=== PATIENT | female | born 1990 | race Caucasian/White ===

== ENCOUNTER 2017-04-09 00:15 | Observation (INO) | payer OTHER ==
[2017-04-09 00:39] LABS: #Basophils 0.1 thou/uL (0.0-0.2); #Eosinphils 0.2 thou/uL (0.0-0.7); #Lymphocytes 2.9 thou/uL (1.20-3.40); #Monocytes 0.6 thou/uL (0.11-0.59); #Neutrophils 5.4 thou/uL (1.40-6.50); %Basophils 0.7 % (0.0-1.0); %Eosinophils 2.1 % (0.0-10.0); %Lymphocytes 31.5 % (21.0-51.0); %Neutrophils 58.6 % (42.0-75.0); Hemoglobin 12.8 g/dL (12.0-16.0); Mean Corpuscular HGB CONC 33.1 g/dL (32.0-36.0); Mean Corpuscular Hemoglobin 30.3 pg (27.0-31.0); Mean Corpuscular Volume 91.6 fl (81.0-99.0); Mean Platelet Volume 8.3 fL (7.4-10.4); Platelet Count 278 thou/uL (130-400); RBC Distribution Width 11.6 % (11.5-14.5); Red Blood Cell (RBC) Count 4.22 mill/uL (4.20-5.40); White Blood Cell (WBC) Count 9.1 thou/uL (4.8-10.8)
[2017-04-09 01:09] LABS: ALT (SGPT) 15 U/L (8-55); AST (SGOT) 15 U/L (5-34); Alkaline Phosphatase 52 U/L (40-150); Anion Gap 9 mmol/L (10-20); BUN (Urea Nitrogen) 19 mg/dL (7.0-18.7); Bilirubin, Total 0.2 mg/dL (0.2-1.2); Calc. Creatinine Clearance 0 mL/min (70-130); Calcium 9.3 mg/dL (7.8-10.44); Carbon Dioxide 28 mmol/L (22-29); Chloride 107 mmol/L (98-107); Estimated GFR-MDRD 69; Globulin 2.8 g/dL (2.4-3.5); Glucose 100 mg/dL (70-105); Lipase 21 U/L (8-78); Potassium 3.6 mmol/L (3.5-5.1); Protein, Total 6.8 g/dL (6.0-8.3); Sodium 140 mmol/L (136-145)
[2017-04-09 01:28] LABS: BHCG - Serum Negative (NEGATIVE); Pregs Control Background? CLEAR/WHITE (CLR/WHITE); Pregs Control Bar Appear? YES (CONTROL BAR)
[2017-04-09] MEDS ORDERED: Acetaminophen 500 MG TAB ONE (01:45)
[2017-04-09] MEDS ORDERED: Dexamethasone 10 MG/ML VIAL ONE (01:45)
[2017-04-09] MEDS ORDERED: Metoclopramide HCl 10 MG/2 ML VIAL ONE (01:45)
[2017-04-09] MEDS ORDERED: Magnesium Sulfate 2 GM/100 ML BAG ONE (01:48)
[2017-04-09 03:14] LABS: Bilirubin Negative (Negative); Blood, Urine Large (Negative); Clarity CLEAR (Clear); Glucose, Urine (Dipstick) Negative (Negative); Leukocyte Negative (Negative); Nitrite Negative (Negative); Protein, Urine (Dipstick) Negative (Neg-Trace); Specific Gravity, Urine 1.022 (1.002-1.036); pH, Urine 6.5 (5.0-9.0)
[2017-04-09 03:16] LABS: Bacteria/HPF None Seen HPF (None Seen); Hyaline Casts/LPF 0-3 HYALINE CAST LPF (0-3 Hyaline); RBC/HPF 0-3 HPF (0-3); Squamous Epithelial 0-3 HPF (0-3); WBC/HPF 0-3 HPF (0-3)
[2017-04-09] MEDS ORDERED: Lidocaine 1% (PF) 30 ML VIAL ONE (04:17)
[2017-04-09] MEDS ORDERED: Ondansetron HCl/PF 4 MG/2 ML Vial ONE (04:17)
[2017-04-09] MEDS ORDERED: Lorazepam 2 MG/ML VIAL ONE (04:17)
--- NOTE | 2017-04-09 07:42 | CT ---
PRELIMINARY REPORT/[facility]/EMERGENCY AFTER HOURS PROCEDURE: EXAM: CT Head Without Intravenous Contrast EXAM DATE/TIME: 04/09/2017 3:09 AM CLINICAL HISTORY: 26 years old, female; Pain; Headache; Patient HX: Er 12; 26 yo f, pt states she has had headache for past x2 weeks which she describes as heaviness and pressure. States that recently she started seeing spots. Not on blood thinners. Denies loc. Denies h/o headaches. TECHNIQUE: Axial computed tomography images of the head/brain without intravenous contrast. COMPARISON: No relevant prior studies available. FINDINGS: Brain: Unremarkable. No hemorrhage. No significant white matter disease. No edema. Ventricles: Unremarkable. No ventriculomegaly. Bones/joints: Unremarkable. No acute fracture. Soft tissues: Unremarkable. Sinuses: Unremarkable as visualized. No acute sinusitis. Mastoid air cells: Unremarkable as visualized. No mastoid effusion. IMPRESSION: No acute intracranial abnormality. Thank you for allowing us to participate in the care of your patient. Dictated and Authenticated by: Wilver Ansari MD 04/09/2017 3:38 AM Central Time ([place] & [place]) FINAL REPORT EMERGENCY AFTER HOURS CT BRAIN WITHOUT CONTRAST: Date: 04/09/17 FINDINGS/IMPRESSION: I agree with the findings and impression given in the preliminary report per [facility] physician. No evide nce of acute intracranial abnormality. POS: OFF
[2017-04-09] MEDS ORDERED: Senokot 8.6 MG TAB PO PRN (08:07)
[2017-04-09] MEDS ORDERED: Mag-Al 1200 mg/1200 mg/30 ML UDCUP PO PRN (08:07)
[2017-04-09] MEDS ORDERED: Acetaminophen 325 MG TAB PO PRN (08:07)
[2017-04-09] MEDS ORDERED: Docusate 100 MG CAP PO PRN (08:07)
--- NOTE | 2017-04-09 08:09 | CT ---
PRELIMINARY REPORT/[facility]/EMERGENCY AFTER HOURS PROCEDURE: EXAM: CT Abdomen and Pelvis With Intravenous Contrast EXAM DATE/TIME: 04/09/2017 3:13 AM CLINICAL HISTORY: 26 years old, female; Pain; Abdominal pain; Localized; Lower; Patient HX: Er12; 26 yo f presents to e d for multiple complaints. Pt states she has had headache for past x2 weeks which she describes as he aviness and pressure. Pt also reports x1 week of abdominal pain which starts in center of abdomen and radiates around to back. States that she noticed blood in urine and also reports suprapubic abdomina l pain. No vaginal discharge. Lmp 03/19/17. Surgical history of section TECHNIQUE: Axial computed tomography images of the abdomen and pelvis with intravenous contrast. Coronal reformatted images were created and reviewed. COMPARISON: No relevant prior studies available. FINDINGS: Lower thorax: Mild bibasilar dependent changes. ABDOMEN: Liver: Mild intrahepatic biliary dilatation. Gallbladder and bile ducts: See above. No pericholecystic inflammatory change. Pancreas: Unremarkable. No mass. No ductal dilation. Spleen: Unremarkable. No splenomegaly. Adrenals: Unremarkable. No mass. Kidneys and ureters: Unremarkable. No solid mass. No hydronephrosis. Stomach and bowel: Unremarkable. No obstruction. No mucosal thickening. Appendix: No findings to suggest acute appendicitis. PELVIS: Bladder: Urinary bladder is under distended. ABDOMEN and PELVIS: Intraperitoneal space: Unremarkable. No free air. No significant fluid collection. Bones/joints: No acute fracture. No dislocation. Soft tissues: Small fat-containing umbilical hernia. Vasculature: Unremarkable. No abdominal aortic aneurysm. Lymph nodes: Unremarkable. No enlarged lymph nodes. IMPRESSION: No acute inflammatory process involving the abdomen or pelvis. Mild intrahepatic biliary dilatation. Thank you for allowing us to participate in the care of your patient. Dictated and Authenticated by: Wilver Ansari MD 04/09/2017 3:43 AM Central Time ([place] & [place]) FINAL REPORT CT ABDOMEN AND PELVIS WITH IV CONTRAST: I agree with the preliminary report given by Dr. Wilver Ansari of [employer]. POS: [facility]
[2017-04-09] MEDS ORDERED: Metoclopramide 10 MG/10 ML UDCUP PO PRN (08:10)
[2017-04-09] MEDS ORDERED: Ketorolac Tromethamine 30 MG/ML VIAL IVP PRN (08:10)
[2017-04-09] MEDS ORDERED: Cyclobenzaprine 10 MG TAB PO PRN (08:10)
[2017-04-09] MEDS ORDERED: Metoclopramide HCl 10 MG/2 ML VIAL IVP PRN (08:10)
[2017-04-09] MEDS ORDERED: Lorazepam 0.5 MG TAB PO PRN (08:16)
[2017-04-09] MEDS ORDERED: clonazePAM 0.5 MG TAB PO PRN (08:18)
--- NOTE | 2017-04-09 08:19 | PDOC.FPRHP ---
- History of Present Illness Chief Complaint: Headache History of Present Illness: 26 yo f with a pmhx of anxiety and depression presents with a 2 week hx of a chronic persistent bilateral headache. She said it starts bitemporal and radiates down to her occipital region. She describes it as squeezing her entire head, and annoying. Naproxen, toradol, and sumatriptan were tried in the outpatient setting without relief. She also endorses intermittent right sided abdominal cramping for 1 week that radiates to right back. + hematuria. Denies dysuria. Endorses an aura with her headache, but denies n/v/d, or photophobia, or neck pain. - Allergies/Adverse Reactions Allergies Allergy/AdvReac Type Severity Reaction Status Date / Time No Known Allergies Allergy Unverified 02/04/13 11:56 - Home Medications Medication Instructions Recorded Confirmed Type Naproxen 500 mg PO Q6HR PRN 04/09/17 04/09/17 History Sertraline HCl 100 mg PO DAILY 04/09/17 04/09/17 History - History PMHx: Depression/Anxiety PSHx: none FHx: No FM of migraines/Headaches Social: Works at [employer]. - Review of Systems General: reports: night sweats. denies: fever/chills, weight/appetite/sleep changes Eyes: denies: eye pain, vision changes ENT: denies: nasal congestion, rhinorrhea Respiratory: denies: cough, congestion, shortness of breath Cardiovascular: denies: chest pain, palpitation Gastrointestinal: denies: nausea, vomiting, diarrhea Genitourinary: denies: incontinence, dysuria, polyuria Skin: denies: rashes, lesions Musculoskeletal: reports: pain (neck), stiffness Neurological: reports: other (headache). denies: numbness, syncope, seizure Psychological: reports: anxiety, depression - Vital signs BP: [111/71] HR: [74] RR: [16] Tmax: [98.3] Pox: [98]% on [RA] - Physical Exam Constitutional: NAD, awake, alert and oriented HEENT: normocephalic and atraumatic, PERRLA, EOMI, conjunctiva clear, no scleral icterus, grossly normal vision, grossly normal hearing, MMM, oropharynx clear, good dention Neck: supple, no LAD, no JVD, no thyromegaly Chest: no-tender to palpation Heart: RRR, normal S1/S2, no murmurs/rubs/gallops, pulses present, no edema Lungs: CTAB, no respiratory distress, no wheezing Abdomen: soft, non-tender, bowel sounds present, no masses/distention, no hernias -Abdomen: no CVA tenderness Musculoskeletal: normal structure, normal tone, ROM grossly normal -Musculoskeletal: TTP suboccipital region. Neurological: no focal deficit, CN II-XII intact, normal sensation, other ( normal DTR's) Skin: no rash/lesions, capillary refill <2 seconds, no jaundice Heme/Lymphatic: no unusual bruising or bleeding, no purpura Psychiatric: normal mood and affect, good judgment and insight, intact recent and remote memory FMR H&P: Results - Labs Result Diagrams: 04/09/17 00:27 04/09/17 00:27 Lab results: WBC 9.1 thou/uL (4.8-10.8) 04/09/17 00: Hgb 12.8 g/dL (12.0-16.0) 04/09/17: Hct 38.7 % (36.0-47.0) 04/09/17: MCV 91.6 fl (81.0-99.0) 04/09/17 00: Plt Count 278 thou/uL (130-400) 04/09/17 00: Neutrophils % 58.6 % (42.0-75.0) 04/09/17 00: Sodium 140 mmol/L (136-145) 04/09/17: Potassium 3.6 mmol/L (3.5-5.1) 04/09/17: Chloride 107 mmol/L (98-107) 04/09/17: Carbon Dioxide 28 mmol/L (22-29) 04/09/17: BUN 19 mg/dL (7.0-18.7) H 04/09/17 00: Creatinine 0.99 mg/dL (0.6-1.1) 04/09/17 00: Glucose 100 mg/dL (70-105) 04/09/17: Calcium 9.3 mg/dL (7.8-10.44) 04/09/17 00:27 Total Bilirubin 0.2 mg/dL (0.2-1.2) 04/09/17 00:27 AST 15 U/L (5-34) 04/09/17 00:27 ALT 15 U/L (8-55) 04/09/17 00:27 Alkaline Phosphatase 52 U/L (40-150) 04/09/17 00:27 Serum Total Protein 6.8 g/dL (6.0-8.3) 04/09/17 00:27 Albumin 4.0 g/dL (3.5-5.0) 04/09/17 00:27 Lipase 21 U/L (8-78) 04/09/17 00:27 Urine Ketones Negative mg/dL (Negative) 04/09/17 02:55 Urine Blood Large (Negative) H 04/09/17 02:55 Urine Nitrite Negative (Negative) 04/09/17 02:55 Ur Leukocyte Esterase Negative (Negative) 04/09/17 02:55 Urine RBC 0-3 HPF (0-3) 04/09/17 02:55 Urine WBC 0-3 HPF (0-3) 04/09/17 02:55 Ur Squamous Epith Cells 0-3 HPF (0-3) 04/09/17 02:55 Urine Bacteria None Seen HPF (None Seen) 04/09/17 02:55 - Radiology Interpretation CT scan - abdomen Status: image reviewed by me, report reviewed by me CT scan - head Status: image reviewed by me, report reviewed by me FMR H&P: A/P - Problem List (1) Migraine with aura Current Visit: Yes Status: Acute Code(s): G43.109 - MIGRAINE WITH AURA, NOT INTRACTABLE, W/O STATUS MIGRAINOSUS Qualifiers: Intractability: intractable Assessment and Plan: This is a 26yo WF w/ no PMH of migraines, presents to ED w/ 2 weeks history of Headache that failed outpatient treatment. Migraine verses musculoskeletal origin. We will admit and try migraine cocktails. And stretching of the head and neck. Head CT was negative. An LP was performed but unsuccessful, however no meningeal signs. If her SLADE does not improve with Migraine cocktail, will consider neurology consult. (2) Hematuria Current Visit: Yes Status: Acute Code(s): R31.9 - HEMATURIA, UNSPECIFIED Assessment and Plan: Will treat for UTI, and obtain Urine Cx. F/u with results. Will need a repeat Urine outpatient to ensure resolved. (3) Abdominal pain Current Visit: Yes Status: Acute Code(s): R10.9 - UNSPECIFIED ABDOMINAL PAIN Assessment and Plan: Abd/Pelvic CT scan negative for kidney stone. However did show mild intrahepatic biliary dilatation. We will treat for UTI, if does not improve, consider MRCP or GI consult. FMR H&P: Upper Level - Plan Date/Time: 04/09/17 6414 I, [Savana Valdez], have evaluated this patient and agree with findings /plan as outlined by marketing intern resident. Pertinent changes/additions are listed here. Attending Addendum - Attending Addendum Date/Time: 04/09/17 7332 I personally evaluated the patient and discussed the management with Dr. Rea. I agree with the History, Examination, Assessment and Plan documented above with any addition or exceptions noted below. Will continue trying migraine medications. Consider adjusting sertraline dose as this could be contributing. Neurology was consulted by the ER.
[2017-04-09] MEDS ORDERED: diphenhydrAMINE 50 MG/ML VIAL IVP SCH (10:15)
[2017-04-09] MEDS ORDERED: Metoclopramide HCl 10 MG/2 ML VIAL IVP SCH (10:15)
[2017-04-09] MEDS ORDERED: Ondansetron HCl/PF 4 MG/2 ML Vial IVP PRN (10:58)
[2017-04-09] MEDS ORDERED: Ondansetron ODT 4 MG TAB PO PRN (10:58)
[2017-04-09] MEDS: Sodium Chloride 0.9% 1,000 ML IV SCH ×2 (11:24→18:48)
[2017-04-09] MEDS ORDERED: ISOVUE-370 76%-LOCM 1 ML ONE (11:46)
[2017-04-09] MEDS ORDERED: cefTRIAXone\\ROCEPHIN 1 GM in Sodium Chloride 0.9% 100 ML IVPB SCH (12:00)
[2017-04-09 12:04] VITALS: BMI 34.7
[2017-04-09] MEDS ORDERED: cefTRIAXone\\ROCEPHIN 1 GM, Syringe 0.4 ML in Sterile Water 9.6 ML SLOW IVP SCH (12:15)
[2017-04-09] MEDS ORDERED: Dexamethasone 4 mg/ml Vial SLOW IVP SCH (17:45)
[2017-04-09] MEDS ORDERED: Valproate Sodium 1,500 MG in Sodium Chloride 0.9% 100 ML IVPB SCH (17:45)
--- NOTE | 2017-04-09 18:31 | CON ---
DATE OF CONSULTATION: 04/09/2017 CONSULTING PHYSICIAN: [facility]. IMPRESSION: Persistent headache, possibly secondary to status migrainous versus benign intracranial hypertension. PLAN: 1. Torres protocol. 2. Ophthalmologic evaluation for evidence of papilledema if the patient does not respond. HISTORY OF PRESENT ILLNESS: Ms. River is a 26-year-old woman with a past history of some intermitte nt headaches and mild obesity. She developed a headache about 2 weeks ago that she describes as begi nning in the frontal region and spreading holocephalic. It is not associated with any nausea, vomiti ng, light or sound sensitivity. She does report some intermittent visual aura of sparkling light and dark spots. She was initially treated with [id number] medications and then some Imitrex, whic h she did not respond to. She was given the routine migraine protocol in the emergency room which fa iled to improve the situation. She had a CT scan of the brain done which was unremarkable. She has been afebrile since admission. She has never had a persistent headache like this before. She denies any other transient vision loss. PAST MEDICAL HISTORY: Otherwise negative. FAMILY HISTORY: Negative for migraines. SOCIAL HISTORY: Unremarkable. ALLERGIES: None. MEDICATIONS: None. REVIEW OF SYSTEMS: Otherwise, no history of seizures, concussions, rash, joint pain, or night sweats . PHYSICAL EXAMINATION: VITAL SIGNS: Have been stable. She is afebrile. HEENT: Pupils are equal and reactive. Conjunctivae clear. NECK: Supple. NEUROLOGIC: She is alert and appropriate. Her speech is fluent and clear. Exam is nonfocal. SUMMARY: Given the transient visual auras, I suspect that this is either a migraine in origin and le ss likely due to increased intracranial pressure. We can try treatment for migraine tonight and get a good ophthalmologic exam if she fails to respond to see if there are any signs of papilledema. I w ould hold off lumbar puncture until we can determine whether it is necessary.
[2017-04-09] MEDS: Dihydroergotamine Mesylate 1 MG/ML AMP SLOW IVP SCH ×2 (18:36→23:51)
[2017-04-09] MEDS: Ondansetron HCl/PF 4 MG/2 ML Vial IVP SCH ×2 (18:36→23:49)
[2017-04-10 04:57] LABS: #Lymphocytes 1.9 thou/uL (1.20-3.40); #Monocytes 0.7 thou/uL (0.11-0.59); #Neutrophils 7.3 thou/uL (1.40-6.50); %Basophils 0.2 % (0.0-1.0); %Eosinophils 0.2 % (0.0-10.0); %Lymphocytes 18.8 % (21.0-51.0); %Monocytes 6.6 % (0.0-10.0); %Neutrophils 74.1 % (42.0-75.0); Hemoglobin 13.2 g/dL (12.0-16.0); Mean Corpuscular HGB CONC 32.9 g/dL (32.0-36.0); Mean Corpuscular Hemoglobin 30.2 pg (27.0-31.0); Mean Corpuscular Volume 91.6 fl (81.0-99.0); Mean Platelet Volume 8.9 fL (7.4-10.4); Platelet Count 260 thou/uL (130-400); RBC Distribution Width 11.7 % (11.5-14.5); Red Blood Cell (RBC) Count 4.37 mill/uL (4.20-5.40); White Blood Cell (WBC) Count 9.8 thou/uL (4.8-10.8)
[2017-04-10 05:07] LABS: Anion Gap 10 mmol/L (10-20); BUN (Urea Nitrogen) 12 mg/dL (7.0-18.7); Calc. Creatinine Clearance 169 mL/min (70-130); Carbon Dioxide 22 mmol/L (22-29); Chloride 111 mmol/L (98-107); Estimated GFR-MDRD 89; Glucose 118 mg/dL (70-105); Potassium 4.2 mmol/L (3.5-5.1); Sodium 139 mmol/L (136-145)
[2017-04-10] MEDS: Ondansetron HCl/PF 4 MG/2 ML Vial IVP SCH ×2 (06:02→12:30)
[2017-04-10] MEDS: Dihydroergotamine Mesylate 1 MG/ML AMP SLOW IVP SCH ×2 (06:04→12:30)
[2017-04-10] MEDS ORDERED: Ketorolac Tromethamine 30 MG/ML VIAL IVP SCH (09:15)
--- NOTE | 2017-04-10 09:24 | PDOC.FM ---
- Subjective Subjective: No acute events overnight. Pt states her headache is improved. Says it's a 3/10 and yesterday was an 8/10. Says she has been taking NSAIDS regularly for 3 weeks for this headache, which may be causing the hematuria. Also thinks she may be starting her menstrual period as well. She denies abdominal pain. Endorses some lower back pain from the lumbar puncture. - Objective MAR Reviewed: Yes Vital Signs & Weight: Vital Signs (12 hours) Temp Pulse Resp BP BP Pulse Ox 04/10/17 08:00 98.3 F 49 L 16 04/10/17 07:28 98.3 F 49 L 16 105/59 L 97 04/10/17 04:11 97.8 F 56 L 18 111/57 L 96 04/09/17 23:10 98.3 F 63 16 106/59 L 96 Weight Weight 97.522 kg I&O: 04/09/17 04/10/17 04/11/17 06:59 06:59 06:59 Intake Total 2724 Output Total 200 Balance 2524 Result Diagrams: 04/10/17 04:06 04/10/17 04:06 <Alisha Rea - Last Filed: 04/10/17 11:22> - Objective Vital Signs & Weight: Vital Signs (12 hours) Temp Pulse Resp BP Pulse Ox 04/10/17 10:54 99.0 F 56 L 16 101/57 L 96 Weight Weight 97.522 kg I&O: 04/09/17 04/10/17 04/11/17 06:59 06:59 06:59 Intake Total 2724 Output Total 200 Balance 2524 Result Diagrams: 04/10/17 04:06 04/10/17 04:06 <Halie Prince - Last Filed: 04/10/17 20:23> Phys Exam - Physical Examination Constitutional: NAD HEENT: PERRLA, moist MMs Respiratory: no wheezing, no rales, clear to auscultation bilateral Cardiovascular: RRR, no significant murmur Gastrointestinal: soft, non-tender, no distention, positive bowel sounds Musculoskeletal: no edema, pulses present Neurological: non-focal Psychiatric: normal affect, A&O x 3 Skin: no rash <Alisha Rea - Last Filed: 04/10/17 11:22> Dx/Plan (1) Migraine with aura Code(s): G43.109 - MIGRAINE WITH AURA, NOT INTRACTABLE, W/O STATUS MIGRAINOSUS Status: Acute QualifierTitle: Intractability: intractable (2) Hematuria Code(s): R31.9 - HEMATURIA, UNSPECIFIED Status: Acute (3) Abdominal pain Code(s): R10.9 - UNSPECIFIED ABDOMINAL PAIN Status: Acute - Plan Plan: 26 yo f with headache for 2 weeks without relief from toradol, naproxen, sumatriptan, admitted for an intractable migraine with aura and diffuse abdominal pain. 1.)Migraine with aura -Recent increase in sertraline, which causes bruxism could have exacerbated the migraine -Dc sertraline, switch to other SSRI or SNRI; pt would like to try an SNRI. Will start cymbalta. -Improved. Received decadron and valproic acid last night and DHE. - fluids dc'd, bella normal diet -Appreciate recs from Dr. Lindsey -Toradol dc'd d/t concern for hematuria 2.)Hematuria- -Likely d/t persistent nsaid use over the past 2-3 weeks -Recommend stopping nsaids at this time and rechecking a UA in the outpatient setting 3.)Dilated intrahepatic biliary ducts- -Pt asymptomatic, without elevation of LFTs and no gallstones -Recommend follow-up in the outpatient setting 4.)Depression and Anxiety- -Dc'd sertraline -Will start cymbalta 5.)Lower back pain-2/2 LP -Flexeril prn for pain and stiffness dispo: dc today <Alisha Rea - Last Filed: 04/10/17 11:22> (1) Migraine with aura Code(s): G43.109 - MIGRAINE WITH AURA, NOT INTRACTABLE, W/O STATUS MIGRAINOSUS Status: Acute Qualifiers: Intractability: intractable (2) Hematuria Code(s): R31.9 - HEMATURIA, UNSPECIFIED Status: Acute (3) Abdominal pain Code(s): R10.9 - UNSPECIFIED ABDOMINAL PAIN Status: Acute <Halie Prince - Last Filed: 04/10/17 20:23> Attending Addendum - Attending Addendum Date/Time: 04/10/17 8312 I personally evaluated the patient and discussed the management with Dr. Rea. I agree with the History, Examination, Assessment and Plan documented above with any addition or exceptions noted below. The patient's headache is improved with valproic acid. Will discharge on medication and pt f/u with PCP. <Halie Prince - Last Filed: 04/10/17 20:23>
[2017-04-10 11:05] VITALS: BP 101/57; TEMP 99
[2017-04-10] MEDS ORDERED: Cyclobenzaprine 10 MG TAB PO PRN (11:27)
[2017-04-10] MEDS: Cyclobenzaprine 10 MG TAB PO SCH ×2 (11:56→11:57)
[2017-04-10] MEDS ORDERED: cefTRIAXone\\ROCEPHIN 1 GM, Syringe 0.4 ML in Sterile Water 9.6 ML SLOW IVP SCH (12:00)
--- NOTE | 2017-04-13 08:26 | DIS-2 ---
DATE OF ADMISSION: 04/09/2017 DATE OF DISCHARGE: 04/10/2017 ADMITTING AND DISCHARGING RESIDENT: Dr. Alisha Berg. ADMITTING AND DISCHARGING ATTENDING: Dr. Halie Prince . CONSULTATIONS: Neurology, Dr. Macias. PROCEDURES: 1. Abdomen and pelvis CT. Impression: No acute inflammatory process involving the abdomen or pelvis. Mild intrahepatic biliary dilatation. 2. Brain CT, no acute intracranial abnormality. 3. Attempted lumbar puncture, unsuccessful. DISCHARGE MEDICATIONS: 1. Valproic acid 250 mg oral b.i.d. 2. Flexeril 10 mg oral t.i.d. as needed. DISCONTINUED MEDICATIONS: 1. Sertraline 100 mg oral daily. 2. Naproxen 500 mg oral every 6 hours as needed. HISTORY OF PRESENT ILLNESS AND HOSPITAL COURSE: Lissette River is a pleasant 26-year-old female with a past medical history of anxiety and depression, who presents with a 2-week history of a chronic persistent bilateral headache. She said it starts bitemporal, radiates down to her occipital region and described it as squeezing her entire head. She has tried naproxen, toradol, and sumatriptan in the outpatient setting, all to which did not give her relief. She said the sumatriptan also made her very agitated. In addition to her headache, she endorses having an aura. She denies nausea, vomiting, diarrhea. She denied photophobia or phonophobia or neck pain. She also endorsed intermittent right-sided abdominal cramping for 1 week that radiates to her back and also some hematuria. She states it is not the right time for her to have her menstrual period, but she thinks that could be starting her menses early. Also, of note, she said that last fall she was on the Nexplanon but was having abnormal vaginal bleeding and had the Nexplanon taken out and then since that time has been started on control pills. This month she has had some irregular bleeding. On initial admission, her vitals were within normal limits. Her exam neurologically showed no focal deficits. Cranial nerves were intact. Normal sensation, normal DTRs. Her heart and lung exam are all within normal limits. Her head exam showed PERRLA and EOMI. Conjunctivae were clear. No scleral icterus. Grossly normal vision, normal hearing. Mucous membranes were moist and clear and oropharynx was clear. Her initial labs showed a normal CBC and a slightly elevated BUN of 19, otherwise unremarkable. She had a CT scan of her abdomen as well as her pelvis, which just showed dilated intrahepatic biliary ducts. She was admitted for migraine with aura, hematuria and abdominal pain. 1. Migraine with aura. She was given IV Reglan and Benadryl initially as well as Toradol IV q.6 hours. She said none of these things seemed to resolve her headache. Dr. Macias was consulted who recommended IV valproic acid as well as IV Decadron. She was given both of these as well as DHE and she stated that her headache had improved by the next day. She also was provided with OMT of her head and neck region by Dr. Gregorio. Her head CT was negative for bleed and LP was performed, but was unsuccessful. There were no meningeal signs during her entire hospitalization. It was initially thought that this migraine could be induced from a recent increase in her sertraline in the outpatient setting as it is known that sertraline can cause bruxism and can lead to headaches. However, after talking with her further, she had not been taking the sertraline very routinely over the past week and so it is less likely to be the etiology. She also still had the headache despite not taking the sertraline for the past 4-5 days. It was recommended that she talk to her primary care physician about potentially trying a different SSRI or SNRI. She did not want to start a new SSRI or SNRI in the hospital. She also reported abnormal vaginal bleeding and it was discussed with her that sometimes migraines can be associated with menses. It was recommended that she follow up with her primary care physician regarding this potential etiology. She was discharged on valproic acid 250 mg oral b.i.d. for prophylactic management of migraines. It was discussed with her the potential for trying a different triptan as these are very good for abortive management. There are several that are better for the treatment of menses associated migraines. We recommended that she discuss with her primary care physician an appropriate alternative to sumatriptan, which seemed to cause her some side effects of agitation and irritability. 2. Hematuria. She was found to have gross and microscopic blood in her urine; however, she stated on her hospital day #2 that she was having abnormal vaginal bleeding and recommended a followup UA in the outpatient setting. She initially was treated for UTI; however, she never complained of any dysuria or suprapubic tenderness or CVA tenderness. 3. Abdominal pain. She complained initially of intermittent right upper quadrant abdominal pain that lasted for a few seconds, mostly while driving. She had an abdominal and pelvic CT, which was negative for kidney stone. It did show mild intrahepatic biliary dilatation and we recommended further outpatient workup for this pathology. DISPOSITION: Stable. DISCHARGE INSTRUCTIONS: 1. Location: Home. 2. Diet: Regular diet, although it was discussed with her the potential of modifying her diet to help control and prevent migraines. 3. Activity: As tolerated. 4. Followup: Follow up with primary care physician within 2-3 days. GEETHA
== END 2017-04-10 13:34 | disposition home or self-care (01) ==
LOC: ERS 00:15 → 2SW 07:30
PROVIDERS: ADMIT Student in an Organized Health Care Education/Training Program; ATTEND Student in an Organized Health Care Education/Training Program
DX: G43.109 Migraine with aura, not intractable, without status migrainosus (principal); F41.9 Anxiety disorder, unspecified; F32.9 Major depressive disorder, single episode, unspecified; R10.9 Unspecified abdominal pain; R31.9 Hematuria, unspecified; E66.01 Morbid (severe) obesity due to excess calories; Z68.34 Body mass index [BMI] 34.0-34.9, adult; Z79.899 Other long term (current) drug therapy
CPT/HCPCS: 36415; 62270; 70450; 74177; 80048; 80053; 81003; 81015; 83690; 84703; 85025; 87040; 87086; 96361; 96365; 96367; 96375; 96376; A4216; G0378; J0696; J1100; J1110; J1200; J1885; J2001; J2060; J2270; J2405; J2765; J3475; J7050

== ENCOUNTER 2018-06-16 07:45 | Outpatient (CLI) | payer OTHER ==
--- NOTE | 2018-06-16 08:28 | ULT ---
LIMITED RIGHT BREAST ULTRASOUND: 06/16/2018 PROVIDED CLINICAL HISTORY: Right breast palpable abnormality. FINDINGS: Limited sonographic interrogation of the right breast is performed at the 2 o'clock position, in the region of palpable concern. The sonographic appearance of the breast parenchyma in this region is no rmal. IMPRESSION: No sonographic abnormality is evident in the region of palpable concern. POS: OFF
== END 2018-06-16 07:46 | disposition home or self-care (01) ==
LOC: BICULT 07:45
PROVIDERS: ATTEND Surgery
DX: N63.0 Unspecified lump in unspecified breast (principal)

== ENCOUNTER 2019-04-13 12:43 | Outpatient (CLI) | payer BC | END 2019-04-13 12:44 | disposition home or self-care (01) | LOC: DTY/OP 12:43 | PROVIDERS: ATTEND Surgery | DX: E66.01 Morbid (severe) obesity due to excess calories (principal) | CPT/HCPCS: 97802 ==